=== PATIENT | male | born 1985 | race Hispanic/Latino ===

== ENCOUNTER 2017-04-02 17:35 | Emergency (ER) | payer OTHER, SELFPAY ==
--- NOTE | 2017-04-02 18:24 | RAD ---
THREE VIEWS RIGHT THUMB 04/02/17 HISTORY: Crushing injury to right thumb. AP, lateral and oblique views right thumb is obtained. No evidence of right thumb fractures, subluxa tions or bony lesions seen. IMPRESSION: Normal three views right thumb. POS: [facility]
[2017-04-02] MEDS ORDERED: HYDROcodone/Acetaminophen 10/325 mg Tablet ONE (18:47)
[2017-04-02] MEDS ORDERED: Adacel (T-DAP) 0.5 ML VIAL ONE (18:47)
[2017-04-02] MEDS ORDERED: Ibuprofen 800 MG TAB ONE (18:47)
== END 2017-04-02 19:10 | disposition home or self-care (01) ==
LOC: MADERS 17:35
DX: S60.011A Contusion of right thumb without damage to nail, initial encounter (principal); X58.XXXA Exposure to other specified factors, initial encounter
CPT/HCPCS: 90471; 90715

== ENCOUNTER 2025-05-29 11:29 | Emergency (ER) | payer SELFPAY ==
[~2025-05-29 11:29] MED LIST: Iopamidol 370 76% 100 ML VIAL ONE
[2025-05-29] MEDS ORDERED: Ondansetron PF 4 MG/2 ML Vial ONE (12:13)
[2025-05-29] MEDS ORDERED: Ketorolac Tromethamine 30 MG (1 mL) VIAL ONE (12:19)
[2025-05-29 12:26] LABS: #Basophils 0.2 thou/uL (0.0-0.2); #Eosinophils 0.1 thou/uL (0.0-0.7); #Lymphocytes 2.2 thou/uL (1.20-3.40); #Monocytes 0.9 thou/uL (0.11-0.59); #Neutrophils 14.7 thou/uL (1.40-6.50); %Basophils 1.1 % (0.0-1.0); %Eosinophils 0.3 % (0.0-10.0); %Lymphocytes 12.4 % (21.0-51.0); %Monocytes 5.0 % (0.0-10.0); %Neutrophils 81.2 % (42.0-75.0); Hematocrit 45.6 % (42.0-52.0); Hemoglobin 15.1 g/dL (14.0-18.0); Mean Corpuscular Hemoglobin 28.2 pg (27.0-31.0); Mean Corpuscular Volume 84.8 fl (78.0-98.0); Platelet Count 313 10x3/uL (130-400); Red Blood Cell (RBC) Count 5.38 mill/uL (4.70-6.10); White Blood Cell (WBC) Count 18.1 10x3/uL (4.8-10.8)
[2025-05-29 12:40] LABS: ALT (SGPT) 24 U/L (Less than 45); AST (SGOT) 22 U/L (11-34); Albumin 4.5 g/dL (3.1-4.5); Alkaline Phosphatase 88 U/L (40-110); Anion Gap 16 mmol/L (10-20); BUN (Urea Nitrogen) 7 mg/dL (8.9-20.6); Bilirubin, Total 0.5 mg/dL (0.3-1.2); Calc. Creatinine Clearance 0 mL/min (70-130); Calcium 9.2 mg/dL (7.8-10.44); Carbon Dioxide 22 mmol/L (22-29); Chloride 108 mmol/L (98-107); Globulin 2.9 g/dL (2.4-3.5); Glucose 111 mg/dL (70-105); Lipase 28 U/L (8-78); Potassium 3.8 mmol/L (3.5-5.1); Sodium 142 mmol/L (136-145)
[2025-05-29 16:11] LABS: Glucose, Urine (Dipstick) Negative (Negative); Leukocyte Negative (Negative); Protein, Urine (Dipstick) Negative (Neg-Trace); Specific Gravity, Urine 1.015 (1.005-1.030)
[2025-05-29 16:15] LABS: CAUTI Indications for Culture Dysuria,urgency,freq; Urine Culture Reflex No No; WBC/HPF None Seen HPF (0-3)
== END 2025-05-29 17:15 | disposition short-term general hospital (02) ==
LOC: MADERS 11:29
DX: K35.80 Unspecified acute appendicitis (principal)
CPT/HCPCS: 74177; 80053; 81001; 83605; 83690; 85025; 96365; 96375; 96376; J1885; J2405; J2543; J3010; J7030; Q9967